=== PATIENT | male | born 1970 | race Caucasian/White ===

== ENCOUNTER 2016-11-16 08:13 | Emergency (ER) | payer OTHER ==
[2016-11-16] MEDS ORDERED: NO MEDICATIONS (08:20)
== END 2016-11-16 09:17 | disposition home or self-care (01) ==
LOC: SED 08:13
DX: S61.210A Laceration without foreign body of right index finger without damage to nail, initial encounter (principal); Z88.0 Allergy status to penicillin; Z23 Encounter for immunization; W45.8XXA Other foreign body or object entering through skin, initial encounter; Y92.098 Other place in other non-institutional residence as the place of occurrence of the external cause
CPT/HCPCS: 12001; 90471; 90715; 99283